=== PATIENT | male | born 1985 | race Caucasian/White ===

== ENCOUNTER 2016-11-23 04:00 | Emergency (ER) | payer OTHER ==
[2016-11-23 04:27] LABS: EOSINOPHIL COUNT 0.1 K/uL (0-0.3); HEMATOCRIT 38.5 % (38.0-50.0); IMMATURE GRANULOCYTE (%) 2.4 % (0.0-0.7); IMMATURE GRANULOCYTE COUNT 0.3 K/uL; INSTRUMENT ABS NEUTROPHIL CT 9.4 K/uL; LYMPHOCYTE COUNT 2.1 K/uL (1.0-2.8); MCH 30.3 PG (29.0-34.0); MCV 88.9 FL (86-99); MEAN PLAT.VOLUME 11.2 uM^3 (9.0-12.4); MONOCYTE (%) 4.8 % (3-12); MONOCYTE COUNT 0.6 K/uL (0-0.8); NEUTROPHIL (%) 74.8 % (45-76); NEUTROPHIL COUNT 9.4 K/uL (1.8-6.4); PLATELET COUNT 174 K/uL (156-360); RBC DIS.WIDTH-CV 12.6 % (11.8-14.6); RBC DIS.WIDTH-SD 41.3 % (39-53); RED BLOOD COUNT 4.33 M/uL (4.00-5.50); WHITE BLOOD COUNT 12.5 K/uL (4.1-10.2)
[2016-11-23 04:36] LABS: AMYLASE 33 IU/L (1-118); CHLORIDE 106 mEq/L (99-109); POTASSIUM 4.1 mEq/L (3.7-5.4); SODIUM 137 mEq/L (136-147)
[2016-11-23 04:38] LABS: GLUCOSE 143 mg/dL (70-99)
[2016-11-23 04:39] LABS: ANION GAP 9 MEQ/L (2-14)
[2016-11-23 04:41] LABS: SERUM ETHYL ALCOHOL < 10 mg/dL
[2016-11-23 04:42] LABS: GFR ESTIMATE (CALCULATED) > 59 mL/min/
[2016-11-23 04:43] LABS: UREA NITROGEN (BUN) 17 mg/dL (9-23)
[2016-11-23 04:45] LABS: LIPASE 57 U/L (1.0-51.0)
[2016-11-23 04:46] LABS: CREATINE KINASE 127 IU/L (1-294)
[2016-11-23 06:42] LABS: ADD MIUA? NO; BILIRUBIN NEGATIVE; BLOOD NEGATIVE; COLOR STRAW ((YELLOW)); GLUCOSE (STRIP) NEGATIVE; KETONES NEGATIVE; LEUKOCYTES NEGATIVE; NITRITE NEGATIVE; PROTEIN (STRIP) NEGATIVE; SPECIFIC GRAVITY 1.031 (1.000-1.030); UCUL ADDED? NO; UROBILINOGEN 0.2 MG/DL (0.2-1.0)
[2016-11-23 06:53] LABS: AMPHETAMINE NEGATIVE (500 ng/mL); BARBITURATES NEGATIVE (200 ng/mL); BENZODIAZEPINES NEGATIVE (150 ng/mL); COCAINE NEGATIVE (150 ng/mL); METHADONE NEGATIVE (200 ng/mL); METHAMPHETAMINE NEGATIVE (500 ng/mL); OPIATES (MORPHINE) PRESUMPTIVE POSITIVE (100 ng/mL); OXYCODONE NEGATIVE (100 ng/mL); PHENCYCLIDINE NEGATIVE (25 ng/mL); PROPOXYPHENE NEGATIVE (300 ng/mL); THC CANNABINOIDS NEGATIVE (50 ng/mL); TRICYCLIC ANTIDEPRESSANTS NEGATIVE (300 ng/mL)
[2016-11-23 06:54] LABS: ADD MEDTOX COMMENT Y; INTERNAL CONTROLS VALID? YES
[2016-11-23] MEDS ORDERED: NORCO 5/3251 TABLET PO (08:08)
[2016-11-23] MEDS ORDERED: BACTRIM,SEPT1 TABLET PO (08:08)
== END 2016-11-23 10:39 | disposition home or self-care (01) ==
LOC: TRA 04:00
PROVIDERS: Emergency Medicine
PROC: 0HQEXZZ Repair Left Lower Arm Skin, External Approach (ICD-10-PCS; principal; 2016-11-23)
DX: S61.512A Laceration without foreign body of left wrist, initial encounter (principal); S80.02XA Contusion of left knee, initial encounter; S80.01XA Contusion of right knee, initial encounter; T14.8 Other injury of unspecified body region; V45 Car occupant injured in collision with railway train or railway vehicle; Y92.89 Other specified places as the place of occurrence of the external cause; M54.9 Dorsalgia, unspecified; R51 Headache; R56.9 Unspecified convulsions
CPT/HCPCS: 70450; 71260; 72125; 72129; 72132; 73110; 73130; 73560; 73630; 74177; 80048; 81003; 82150; 82550; 83690; 84999; 85025; 86900; 86901; 90832; 99281; 99285; G0480; J0690; J2250; J2270; J3010; J7050